=== PATIENT | male | born 1985 | race Caucasian/White ===

== ENCOUNTER 2025-01-13 07:31 | Day surgery (SDC) | payer OTHER ==
[2025-01-13 08:38] VITALS: BMI 24.3
[2025-01-13] MEDS ORDERED: ETOMIDATE 20 MG/10 ML VIAL IVPUSH ONE (09:07)
[2025-01-13] MEDS ORDERED: PROPOFOL 20 ML ONE (09:07)
[2025-01-13] MEDS ORDERED: KETOROLAC TROMETHAMINE 30 MG/1 ML VIAL ONE (09:07)
[2025-01-13] MEDS ORDERED: ONDANSETRON 4 MG/2 ML VIAL ONE (09:07)
[2025-01-13] MEDS ORDERED: DEXAMETHASONE SOD PHOSPHATE 4 MG/1 ML VIAL ONE (09:07)
[2025-01-13 10:44] VITALS: RESP 18
[2025-01-13 11:14] VITALS: BP 109/76; PULSE 77; TEMP 97.7
== END 2025-01-13 11:15 ==
LOC: FECT 07:31
PROVIDERS: ATTEND Student in an Organized Health Care Education/Training Program
PROC: GZB4ZZZ Other Electroconvulsive Therapy (ICD-10-PCS; principal; 2025-01-13 10:00)
DX: F25.9 Schizoaffective disorder, unspecified (principal)
CPT/HCPCS: 90870; 94760

== ENCOUNTER 2025-02-10 08:48 | Day surgery (SDC) | payer OTHER ==
[2025-02-09 14:37] VITALS: BMI 23.5
[2025-02-10] MEDS ORDERED: KETOROLAC TROMETHAMINE 30 MG/1 ML VIAL ONE (11:06)
[2025-02-10] MEDS ORDERED: DEXAMETHASONE SOD PHOSPHATE 4 MG/1 ML VIAL ONE (11:06)
[2025-02-10] MEDS ORDERED: ONDANSETRON 4 MG/2 ML VIAL ONE (11:06)
[2025-02-10] MEDS ORDERED: SUCCINYLCHOLINE CHLORIDE 200 MG/10 ML SYRINGE ONE (11:06)
[2025-02-10] MEDS ORDERED: ETOMIDATE 20 MG/10 ML VIAL IVPUSH ONE (11:06)
[2025-02-10 11:37] VITALS: RESP 16
[2025-02-10 11:48] VITALS: BP 112/72; PULSE 75
[2025-02-10 12:23] VITALS: TEMP 97.4
== END 2025-02-10 12:26 | disposition home or self-care (01) ==
LOC: FECT 08:48
PROVIDERS: ATTEND Student in an Organized Health Care Education/Training Program
PROC: GZB4ZZZ Other Electroconvulsive Therapy (ICD-10-PCS; principal; 2025-02-10 11:15)
DX: F32.A Depression, unspecified (principal)
CPT/HCPCS: 90870; 94760

== ENCOUNTER 2025-02-21 08:42 | Day surgery (SDC) | payer OTHER ==
[2025-02-20 12:04] VITALS: BMI 23.5
[2025-02-21 11:46] VITALS: RESP 16; TEMP 97.5
[2025-02-21 11:48] VITALS: BP 110/69; PULSE 72
== END 2025-02-21 11:43 ==
LOC: FECT 08:42
PROVIDERS: ATTEND Student in an Organized Health Care Education/Training Program
PROC: GZB4ZZZ Other Electroconvulsive Therapy (ICD-10-PCS; principal; 2025-02-21 10:26)
DX: F32.A Depression, unspecified (principal)
CPT/HCPCS: 90870; 94760

== ENCOUNTER 2025-03-07 09:55 | Day surgery (SDC) | payer OTHER ==
[2025-03-01 09:49] VITALS: BMI 23.5
[2025-03-07 12:40] VITALS: RESP 16; TEMP 97.7
[2025-03-07 12:53] VITALS: BP 112/70; PULSE 68
== END 2025-03-07 13:00 | disposition home or self-care (01) ==
LOC: FECT 09:55
PROVIDERS: ATTEND Student in an Organized Health Care Education/Training Program
PROC: GZB4ZZZ Other Electroconvulsive Therapy (ICD-10-PCS; principal; 2025-03-07 11:46)
DX: F25.1 Schizoaffective disorder, depressive type (principal)
CPT/HCPCS: 90870; 94760

== ENCOUNTER 2025-03-27 08:44 | Day surgery (SDC) | payer OTHER ==
[2025-03-27] MEDS ORDERED: ETOMIDATE 20 MG/10 ML VIAL IVPUSH ONE (11:06)
[2025-03-27 11:38] VITALS: RESP 16
[2025-03-27 14:03] VITALS: PULSE 85; TEMP 97.3
[2025-03-27 14:07] VITALS: BP 129/73
== END 2025-03-27 12:20 | disposition home or self-care (01) ==
LOC: FECT 08:44
PROVIDERS: ATTEND Student in an Organized Health Care Education/Training Program
PROC: GZB4ZZZ Other Electroconvulsive Therapy (ICD-10-PCS; principal; 2025-03-27 11:11)
DX: F25.1 Schizoaffective disorder, depressive type (principal)
CPT/HCPCS: 90870; 94760